=== PATIENT | male | born 1960 | race Caucasian/White ===

== ENCOUNTER 2020-12-10 18:47 | Emergency (ER) | payer OTHER ==
[~2020-12-10] VITALS: Ht 180.3 cm; Wt 93.0 kg
[~2020-12-10 18:47] MED LIST: ATORVASTATIN CA10 MG PO; ATORVASTATIN CA20 MG PO; CELEXA 10 MG TA10 M1 PO; CELEXA 20 MG TA20 MG PO; CO Q-10100 MG PO; FIBER0.52 G1 PO; GRAPE SEED25 MG PO; KRILL OIL500 MG PO; LORTAB 5-500 T1 EAC1; MAGNESIUM100 MG PO; PROBIOTIC1 EAC1 PO
[2020-12-10 19:44] LABS: ABSOLUTE NEUTROPHILS 4.1 thou/uL (1.4-8.2); BASOPHILS 0.6 % (0.0-2.0); EOSINOPHILS 2.3 % (0.0-3.0); HEMATOCRIT 38.2 % (42.0-52.0); HEMOGLOBIN 12.8 gm/dL (14.0-18.0); LYMPHOCYTES 30.5 % (24.0-44.0); MCH 29.9 pg (26.0-34.0); MCHC 33.5 g/dL (28.0-37.0); MCV 89.4 fL (80.0-100.0); MONOCYTES 9.7 % (1.0-8.0); PLATELET COUNT 217 thou/uL (150-400); POLYS 56.9 % (36.0-66.0); RBC 4.27 mil/uL (4.50-6.00); RDW 13.7 % (10.5-14.5); WBC 7.2 thou/uL (4.0-11.0)
[2020-12-10 19:48] LABS: URINE BILIRUBIN NEGATIVE (Negative); URINE BLOOD NEGATIVE (Negative); URINE CLARITY CLEAR; URINE COLOR YELLOW; URINE GLUCOSE-RANDOM* NEGATIVE (Negative); URINE KETONES NEGATIVE (Negative); URINE LEUKOCYTES-REFLEX NEGATIVE (Negative); URINE NITRITE-REFLEX NEGATIVE (Negative); URINE PROTEIN (DIPSTICK) NEGATIVE (Negative); URINE UROBILINOGEN 0.2 E.U./dl (0.2-1.0)
[2020-12-10 19:52] LABS: ANION GAP 8 mmol/L (7-16); BUN 21 mg/dL (7-18); CALCIUM 9.2 mg/dL (8.5-10.1); CHLORIDE 105 mmol/L (98-107); CO2 27 mmol/L (21-32); CREATININE 1.4 mg/dL (0.7-1.3); GLUCOSE 100 mg/dL (74-106); POTASSIUM 4.1 mmol/L (3.5-5.1); SODIUM 140 mmol/L (136-145)
[2020-12-10 20:01] LABS: APTT 21.7 Seconds (24.5-32.8); INR 1.1; PROTIME 11.9 Seconds (10.5-12.1)
[2020-12-10 20:03] LABS: ALBUMIN 3.7 g/dL (3.4-5.0); AMYLASE 107 U/L (25-115); DIRECT BILIRUBIN 0.1 mg/dL (<0.1-0.2); LIPASE 231 U/L (73-393); PHOSPHORUS 3.5 mg/dL (2.6-4.7); SGOT 30 U/L (15-37); SGPT 41 U/L (16-63); TOTAL BILIRUBIN 0.4 mg/dL (0.2-1.0); TOTAL PROTEIN 7.2 g/dL (6.4-8.2); TROPONIN-I <0.06 ng/mL (<0.06)
[2020-12-10] MEDS ORDERED: NORCO5 PO ×2 (21:36→22:31)
[2020-12-10 22:50] VITALS: BP 165/85
--- NOTE | 2020-12-11 07:06 | EKG ---
[facility] [place] [address] ELECTROCARDIOGRAM REPORT Name: RADHA QUINONES Room #: DEP DALE Brand#: [id number] Admission: 12/10/20 Attend Phys: Discharge: 12/10/20 Date of : 60 Report #: [id number] [facility] ED Test Date: 2020-12-10 Test Time: 19:14:54 Pat Name: RADHA QUINONES Department: Room: Gender: M [employer]: am : 1960 Requested By: Bert Rudd Order Number: [id number] MD: Jose R Mathias Measurements Intervals [place] Rate: 73 P: -15 KS: 149 QRS: 79 QRSD: 105 T: 63 QT: 425 QTc: 469 Interpretive Statements Sinus rhythm Compared to ECG 07/19/2013 08:17:39 No significant changes Electronically Signed On 12-11-2020 7:06:24 CDT by Jose R Mathias [email or web address] <ELECTRONICALLY SIGNED> By: Jose R Mathias MD, [facility] 12/11/20 [id number] 1914 Jose R Mathias MD, FACC /EPI
== END 2020-12-10 22:51 | disposition home or self-care (01) ==
LOC: ER 18:47
PROVIDERS: Emergency Medicine
DX: S52.502A Unspecified fracture of the lower end of left radius, initial encounter for closed fracture (principal); S22.42XA Multiple fractures of ribs, left side, initial encounter for closed fracture; I10 Essential (primary) hypertension; E78.5 Hyperlipidemia, unspecified; Z79.899 Other long term (current) drug therapy; W11.XXXA Fall on and from ladder, initial encounter; Y93.89 Activity, other specified; Y92.89 Other specified places as the place of occurrence of the external cause; Y99.8 Other external cause status